=== PATIENT | female | born 1995 | race Caucasian/White ===

== ENCOUNTER 2017-07-21 21:47 | Emergency (ER) | payer SELFPAY ==
[~2017-07-21] VITALS: Ht 149.9 cm; Wt 79.0 kg
[2017-07-22] MEDS ORDERED: KETOROLAC 60MG/2ML VIAL IM ONE (03:45)
[2017-07-22 04:04] VITALS: BP 119/83
== END 2017-07-22 05:10 | disposition home or self-care (01) ==
LOC: ER 22:30
DX: M25.512 Pain in left shoulder (principal); M25.511 Pain in right shoulder; M79.1 Myalgia; M54.5 Low back pain; M54.2 Cervicalgia; V49.88XA Car occupant (driver) (passenger) injured in other specified transport accidents, initial encounter; Y93.89 Activity, other specified; Y92.410 Unspecified street and highway as the place of occurrence of the external cause; Y99.8 Other external cause status
CPT/HCPCS: 71045; 81025; 96372; 99283; J1885; Z7610